=== PATIENT | male | born 1975 | race African-American/Black ===

== ENCOUNTER 2017-05-03 22:22 | Emergency (ER) | payer OTHER ==
[2017-05-03 22:35] VITALS: BP 103/54; PULSE 76; TEMP 98.2; BMI 20.9
[2017-05-03] MEDS ORDERED: IBUPROFEN 400 MG TABLET (FP) PO ONE ×2 (22:49→22:57)
--- NOTE | 2017-05-03 22:56 | PDOC ---
History of Present Illness - General Chief Complaint: Pain Stated Complaint: KNEE INJURY Time Seen by Provider: 05/03/17 22:42 History Source: Patient Exam Limitations: No Limitations - History of Present Illness Initial Comments: 05/03/17 22:51 Patient is a 41 otherwise healthy male here today with left knee pain since Sunday. The pain onset while the patient was squatting in the gym. He says the knee is swollen and feels unstable, but he is able to walk if necessary. The pain is located behind and above the knee. He denies nausea, vomiting, fevers and chills. He denies chest pain and shortness of breath. Past History - Past Medical History Allergies/Adverse Reactions: Allergies Allergy/AdvReac Type Severity Reaction Status Date / Time No Known Allergies Allergy Verified 05/03/17 22:31 Home Medications: Ambulatory Orders Oxycodone HCl/Acetaminophen [Percocet 10-325 mg Tablet -] 1 - 2 tab PO Q6H #20 tablet 08/27/15 Ibuprofen [Motrin -] 600 mg PO TID #21 tablet 05/03/17 Methocarbamol [Robaxin -] 500 mg PO TID #21 tablet 05/03/17 Other medical history: Pt denies - Suicide/Smoking/Psychosocial Hx Smoking History: Never smoked Have you smoked in the past 12 months: No Information on smoking cessation initiated: No 'Breaking Loose' booklet given: 08/27/15 Hx Alcohol Use: No Drug/Substance Use Hx: Yes (Marijuana) Substance Use Type: Marijuana Review of Systems - Review of Systems Comments:: 05/03/17 22:53 GENERAL/CONSTITUTIONAL: No fever or chills. No weakness. HEAD, EYES, EARS, NOSE AND THROAT: No change in vision. No sore throat. CARDIOVASCULAR: No chest pain or shortness of breath RESPIRATORY: No cough, wheezing, or hemoptysis. GASTROINTESTINAL: No nausea, vomiting, diarrhea or constipation. GENITOURINARY: No dysuria, frequency, or change in urination. MUSCULOSKELETAL: Positive for left knee pain. No neck or back pain. SKIN: No rash NEUROLOGIC: No headache, vertigo, loss of consciousness, or change in strength/ sensation. ENDOCRINE: No increased thirst. No abnormal weight change HEMATOLOGIC/LYMPHATIC: No anemia, easy bleeding, or history of blood clots. ALLERGIC/IMMUNOLOGIC: No hives or skin allergy. *Physical Exam - Vital Signs Last Vital Signs Temp Pulse Resp BP Pulse Ox 98.2 F 76 18 103/54 97 05/03/17 22:31 05/03/17 22:31 05/03/17 22:31 05/03/17 22:31 05/03/17 22:31 - Physical Exam Comments: 05/03/17 22:54 GENERAL: Awake, alert, and fully oriented, in no acute distress HEAD: No signs of trauma, normocephalic, atraumatic EYES: PERRLA, EOMI, sclera anicteric, conjunctiva clear ENT: Auricles normal inspection, hearing grossly normal, nares patent, oropharynx clear without exudates. Moist mucosa NECK: Normal ROM, supple, no lymphadenopathy, JVD, or masses LUNGS: No distress, speaks full sentences, clear to auscultation bilaterally HEART: Regular rate and rhythm, normal S1 and S2, no murmurs, rubs or gallops, peripheral pulses normal and equal bilaterally. L KNEE: Swollen, tender around medial aspect of tibia and along quadriceps tendon, drawer test negative NEUROLOGICAL: Cranial nerves II through XII grossly intact. Normal speech, normal gait, no focal sensorimotor deficits SKIN: Warm, Dry, normal turgor, no rashes or lesions noted. ED Treatment Course - RADIOLOGY Radiology Studies Ordered: Category Date Time Status KNEE 3 POS-LEFT [RAD] Stat Radiology 05/03/17 22:49 Ordered Medical Decision Making - Medical Decision Making 05/03/17 22:55 Patient is a healthy 41M here today complaining of knee pain. Vital signs stable and normal. Low suspicion for bony injury but will rule out fracture with x-rays. Will treat with ibuprofen. 05/03/17 23:25 X-rays show no fracture. Will discharge with ortho follow up. *DC/Admit/Observation/Transfer Diagnosis at time of Disposition: Left knee pain Qualifiers: Chronicity: acute Qualified Code(s): M25.562 - Pain in left knee; M25.562 - Pain in left knee - Discharge Dispostion Disposition: HOME Condition at time of disposition: Good Admit: No - Prescriptions Prescriptions: Ibuprofen [Motrin -] 600 mg PO TID #21 tablet Methocarbamol [Robaxin -] 500 mg PO TID #21 tablet - Referrals Referrals: Ranjeet Anderson MD [Staff Physician] - - Patient Instructions Printed Discharge Instructions: DI for Knee Pain
--- NOTE | 2017-05-03 23:03 | PDOC ---
Attending Attestation - Resident Resident Name: Alexys Junior - ED Attending Attestation I have performed the following: I have examined & evaluated the patient, The case was reviewed & discussed with the resident, I agree w/resident's findings & plan, Exceptions are as noted - HPI HPI: 05/03/17 22:58 pain to left knee after doing swats - Physicial Exam PE: 05/03/17 23:03 *Physical Exam General Appearance: Yes: Appropriately Dressed. No: Apparent Distress, Intoxicated HEENT: positive: EOMI, CLAUDINE, Normal ENT Inspection, Normal Voice, TMs Normal, Pharynx Normal. negative: Pale Conjunctivae, Photophobia, Scleral Icterus (R), Scleral Icterus (L) Neck: positive: Trachea midline, Normal Thyroid, Supple. negative: Tender, Rigid, Carotid bruit, Stridor, Lymphadenopathy (R), Lymphadenopathy (L), Thyromegaly Respiratory/Chest: positive: Lungs Clear, Normal Breath Sounds. negative: Chest Tender, Respiratory Distress, Accessory Muscle Use, Labored Respiration, RES, Crackles, Rales, Rhonchi, Stridor, Wheezing, Dullness Cardiovascular: positive: Regular Rhythm, Regular Rate, S1, S2. negative: Edema , JVD, Murmur, Bradycardia, Tachycardia Vascular Pulses: Dorsalis-Pedis (R): 2+, Doralis-Pedis (L): 2+ Gastrointestinal/Abdominal: positive: Normal Bowel Sounds, Flat, Soft. negative : Tender, Organomegaly, Pulsatile Mass, Increased Bowel Sounds, Decreased BS, Distended, Guarding, Rebound, Hernia, Hepatomegaly, Spleenomegaly Lymphatic: negative: Adenopathy, Tenderness Musculoskeletal: positive: Normal Inspection. negative: CVA Tenderness, Decreased Range of Motion Extremity: positive: Normal Capillary Refill, Normal Inspection, Normal Range of Motion, Pelvis Stable. negative: Tender, Pedal Edema, Swelling, Erythema Integumentary: positive: Normal Color, Dry, Warm. 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 negative: EOM Palsy, Facial Droop, Sensory Deficit - Medical Decision Making 05/08/17 19:37 knee xray done. Shoes no fracture or dislocation. Pt referred to Ortho
== END 2017-05-03 23:46 | disposition home or self-care (01) ==
LOC: JER 22:22
DX: M25.562 Pain in left knee (principal)
CPT/HCPCS: 73562-TC-LT; 99283-25

== ENCOUNTER 2017-09-07 17:51 | Emergency (ER) | payer OTHER ==
--- NOTE | 2017-09-07 18:01 | PDOC ---
Rapid Medical Evaluation Time Seen by Provider: 09/07/17 17:59 Medical Evaluation: Allergies Allergy/AdvReac Type Severity Reaction Status Date / Time No Known Allergies Allergy Verified 05/03/17 22:31 I have performed a brief in-person evaluation of this patient. The patient presents with a chief complaint of: painful abscess inside of right ear canal Pertinent physical exam findings: area of swelling inside the right ear canal just at the opening of the canal that is TTP I have ordered the following: nothing The patient will proceed to the ED for further evaluation.
[2017-09-07 18:02] VITALS: BP 110/66; PULSE 74; TEMP 98; BMI 21.3
--- NOTE | 2017-09-07 19:29 | PDOC ---
History of Present Illness - General Chief Complaint: Ear Problem Stated Complaint: EAR PAIN Time Seen by Provider: 09/07/17 17:59 History Source: Patient Exam Limitations: No Limitations - History of Present Illness Initial Comments: 09/07/17 19:24 Patient is a 42-year-old male, no significant medical history currently on no medication presents for painful lesion in the right ear reports yesterday felt area and thought it was small pimple has increased in size in the last 24 hours[ ] Past Medical History: [Denies]. Allergies: No known allergies Medications: [None] Family History: Non-contributory Social History: Denies smoking, alcohol use, or IVDU Review of Systems GENERAL/CONSTITUTIONAL: [No fever or chills. No weakness. No weight change.] HEAD, EYES, EARS, NOSE AND THROAT: [No change in vision. Painful palpable mass to right ear,inner canal, No sore throat. ] CARDIOVASCULAR: [No chest pain or shortness of breath.] RESPIRATORY: [No cough, wheezing, or hemoptysis.] GASTROINTESTINAL: [No nausea, vomiting, diarrhea or constipation. No rectal bleeding.] GENITOURINARY: [No dysuria, frequency, or change in urination.] MUSCULOSKELETAL: [No joint or muscle swelling or pain. No neck or back pain.] SKIN AND BREASTS: [No rash or easy bruising.] NEUROLOGIC: [No headache, vertigo, loss of consciousness, or loss of sensation.] PSYCHIATRIC: [No depression or anxiety.] ENDOCRINE: [No increased thirst. No abnormal weight change.] HEMATOLOGIC/LYMPHATIC: [No anemia, easy bleeding, or history of blood clots.] ALLERGIC/IMMUNOLOGIC: [No hives or skin allergy. No latex allergy.] Physical Exam: GENERAL: [The patient is awake, alert, and fully oriented, in no acute distress. ] HEAD: [Normal with no signs of trauma.] EYES: [Pupils equal, round and reactive to light, extraocular movements intact, sclera anicteric, conjunctiva clear.] ENT: [Painful lesion in the right ear, no erythema, no warmth, no fluctuance, nares patent, oropharynx clear without exudates. Moist mucous membranes. No uvula deviation] NECK: [Normal range of motion, supple without lymphadenopathy, JVD, or masses.] LUNGS: [Breath sounds equal, clear to auscultation bilaterally. No wheezes, and no crackles.] HEART: [Regular rate and rhythm, normal S1 and S2 without murmur, rub or gallop. ] ABDOMEN: [Soft, nontender, normoactive bowel sounds. No guarding, no rebound. No masses. No bruising or abrasions] MUSCULOSKELETAL: [Normal range of motion, no edema. No clubbing or cyanosis. No cords, erythema, or tenderness. No CVA Tenderness with fist.] NEUROLOGICAL: [Cranial nerves II through XII grossly intact. Normal speech, normal gait.] SKIN: [Warm, Dry, normal turgor, no rashes or lesions noted.] Past History - Past Medical History Allergies/Adverse Reactions: Allergies Allergy/AdvReac Type Severity Reaction Status Date / Time No Known Allergies Allergy Verified 09/07/17 17:59 Home Medications: Ambulatory Orders Cephalexin Monohydrate [Keflex -] 500 mg PO Q6H #40 capsule 09/07/17 Hydrocortisone 1% Cream [Hytone 1% Cream -] 1 applic TP BID #1 tube 09/07/17 COPD: No - Suicide/Smoking/Psychosocial Hx Smoking History: Never smoked Have you smoked in the past 12 months: No Information on smoking cessation initiated: No 'Breaking Loose' booklet given: 08/27/15 Hx Alcohol Use: No Drug/Substance Use Hx: Yes (Marijuana) Substance Use Type: Marijuana *Physical Exam - Vital Signs Last Vital Signs Temp Pulse Resp BP Pulse Ox 98.0 F 74 18 110/66 100 09/07/17 18:00 09/07/17 18:00 09/07/17 18:00 09/07/17 18:00 09/07/17 18:00 Medical Decision Making - Medical Decision Making 09/07/17 19:27 A/P: Patient with painful lesion in the right ear. Patient on antibiotics, hydrocortisone cream to area, follow-up with ENT on Sunday if any fever, difficulty hearing, or any other concerns return to the ER. *DC/Admit/Observation/Transfer Diagnosis at time of Disposition: Ear lesion - Discharge Dispostion Disposition: HOME Condition at time of disposition: Stable Admit: No - Prescriptions Prescriptions: Cephalexin Monohydrate [Keflex -] 500 mg PO Q6H #40 capsule Hydrocortisone 1% Cream [Hytone 1% Cream -] 1 applic TP BID #1 tube - Referrals Referrals: Ward Wood MD [Staff Physician] - - Patient Instructions Additional Instructions: Recommend follow-up with ENT May take Motrin 6 injury milligrams by mouth every 8 hours as needed for pain Warm soaks to the ER for 20 minutes, 4-6 times per day - Post Discharge Activity Forms/Work/School Notes: Back to Work
== END 2017-09-07 19:43 | disposition home or self-care (01) ==
LOC: JERFT 17:51
DX: H60.01 Abscess of right external ear (principal)
CPT/HCPCS: 99281-25